=== PATIENT | male | born 1995 | race Hispanic/Latino ===

== ENCOUNTER 2016-10-11 04:29 | Emergency (ER) | payer OTHER ==
[2016-10-11 04:48] VITALS: BP 127/68; PULSE 67; RESP 16; TEMP 97.8; O2SAT 98
--- NOTE | 2016-10-11 05:02 | C.PDOC ---
History Of Present Illness Patient is a 21 year old male who presents to the ER with a complaint of a rash that started on saturday and has worsened. Patient reports pain and swelling to the areas of the rash. Admits to squeezing the area but notes he got a new lesion prompting ER visit. Denies difficulty breathing or difficulty swallowing.No known allergen. No fever. Time Seen by Provider: 10/11/16 04:52 Chief Complaint (Nursing): Abnormal Skin Integrity History Per: Patient History/Exam Limitations: no limitations Onset/Duration Of Symptoms: Days (Since saturday) Current Symptoms Are (Timing): Still Present Quality Of Symptoms: Painful, Swollen Recent travel outside of the [place]: No Past Medical History Reviewed: Historical Data, Nursing Documentation, Vital Signs Vital Signs: Last Vital Signs Temp 97.8 F 10/11/16 04:39 Pulse 67 10/11/16 04:39 Resp 16 10/11/16 04:39 BP 127/68 10/11/16 04:39 Pulse Ox 98 10/11/16 06:31 - Medical History PMH: Anxiety, Depression Surgical History: No Surg Hx Family History: States: Unknown Family Hx - Social History Hx Alcohol Use: Yes Hx Substance Use: Yes - Immunization History Hx Influenza Vaccination: No Hx Pneumococcal Vaccination: No Review Of Systems Respiratory: Negative for: Shortness of Breath, SOB with Excertion Gastrointestinal: Negative for: Other (Difficulty swallowing) Skin: Positive for: Rash Physical Exam - Physical Exam Appears: Well, Non-toxic, No Acute Distress Skin: Warm, Dry, Rash (3 pustules w/ surrounding erythema to right lower lip. Cluster of pustules with erythema to chin. 1 pustule to right side of neck. No streaking, crusting, ulceration or discharge.) Head: Atraumatic, Normacephalic Eye(s): bilateral: Normal Inspection, EOMI Nose: Normal Oral Mucosa: Moist Lips: Swelling (Right lower lip) Gingiva: Normal Appearing, No Erythema, No Ulceration, No Swelling Throat: Normal, No Erythema, No Exudate Neck: Normal, Supple Lymphatic: Normal Exam Chest: Symmetrical, No Tenderness Cardiovascular: Rhythm Regular Respiratory: Normal Breath Sounds, No Accessory Muscle Use, Other (Speaking in complete sentences) Neurological/Psych: Oriented x3, Normal Speech, Other (No focal deficits) ED Course And Treatment O2 Sat by Pulse Oximetry: 98 (Room air) Pulse Ox Interpretation: Normal Progress Note: Discussed signs of concern and instructed to follow up with PMD within 2-3 days for wound check. Disposition - Disposition Disposition: HOME/ ROUTINE Disposition Time: 05:00 Condition: STABLE Additional Instructions: Watch for signs of concern including increased redness, swelling and fever. return to er if symptoms persist or worsen. Prescriptions: Mupirocin 2% Ointment [Bactroban Ointment] 1 appl TP TID #1 tube Sulfamethoxazole/Trimethoprim [Bactrim DS 800 mg-160 mg] 1 tab PO BID #14 tab Instructions: Acute Rash (ED) - Clinical Impression Clinical Impression: Cellulitis, Pustule - Scribe Statement The provider has reviewed the documentation as recorded by the Waqasibcomfort Lam All medical record entries made by the Michael were at my direction and personally dictated by me. I have reviewed the chart and agree that the record accurately reflects my personal performance of the history, physical exam, medical decision making, and the department course for this patient. I have also personally directed, reviewed, and agree with the discharge instructions and disposition.
== END 2016-10-11 05:30 | disposition home or self-care (01) ==
LOC: C.ER 04:29
DX: K13.0 Diseases of lips (principal); L08.9 Local infection of the skin and subcutaneous tissue, unspecified